=== PATIENT | male | born 1955 | race Two or more races ===

== ENCOUNTER 2017-02-14 19:14 | Inpatient (IN) | payer OTHER ==
[~2017-02-14] VITALS: Ht 172.7 cm; Wt 117.9 kg
[~2017-02-14 19:14] MED LIST: ALBUTEROL2.5 MG/3 M IH; IPRATROPIU0.2 MG/1 M IH; PREDNISONE20 MG PO; RISPERIDONE0.5 MG PO; SERTRALINE HCL50 MG PO
[2017-02-14] MEDS ORDERED: CIPRO100 MG (19:22)
[2017-02-14] MEDS ORDERED: PANADOL EXTRA500 MG (19:23)
[2017-02-14] MEDS ORDERED: PNEU16DI2 (19:23)
[2017-02-14] MEDS ORDERED: DICY10CA (19:23)
[2017-02-20] MEDS ORDERED: COLACE100 MG PO (09:56)
[2017-02-20] MEDS ORDERED: PROTONIX40 MG PO (09:56)
[2017-02-20] MEDS ORDERED: DUI500 PO (09:56)
== END 2017-02-20 13:22 | disposition home health service (06) | DRG 389 ==
LOC: ER 19:14 → MEDI 02-16 14:04 → SEC-K 02-16 14:04 → MEDI 02-17 01:12
PROC: 3E0336Z Introduction of Nutritional Substance into Peripheral Vein, Percutaneous Approach (ICD-10-PCS; principal; 2017-02-17)
PROC: 3E0F7GC Introduction of Other Therapeutic Substance into Respiratory Tract, Via Natural or Artificial Opening (ICD-10-PCS; 2017-02-17)
DX: K56.0 Paralytic ileus (principal); E27.49 Other adrenocortical insufficiency; E66.8 Other obesity; I10 Essential (primary) hypertension; G47.33 Obstructive sleep apnea (adult) (pediatric); K56.41 Fecal impaction; M10.09 Idiopathic gout, multiple sites; N30.80 Other cystitis without hematuria; E11.51 Type 2 diabetes mellitus with diabetic peripheral angiopathy without gangrene; E11.65 Type 2 diabetes mellitus with hyperglycemia; B96.1 Klebsiella pneumoniae [K. pneumoniae] as the cause of diseases classified elsewhere; J44.9 Chronic obstructive pulmonary disease, unspecified

== ENCOUNTER 2017-08-10 16:00 | Inpatient (IN) | payer OTHER ==
[~2017-08-10] VITALS: Ht 243.8 cm; Wt 110.2 kg
[~2017-08-10 16:00] MED LIST changes: +CIPRO100 MG; +COLACE100 MG PO; +DICY10CA; +DUI500 PO; +PANADOL EXTRA500 MG; +PNEU16DI2; +PROTONIX40 MG PO
[2017-08-10] MEDS ORDERED: ZYLOPRIM100 M1 (16:34)
[2017-08-10] MEDS ORDERED: METFORMIN HCL500 MG (16:34)
== END 2017-08-22 13:34 | disposition home health service (06) | DRG 693 ==
LOC: ER 16:00 → SURH 19:58 → SEC-K 19:58 → SURH 08-11 00:31
PROVIDERS: Urology
PROC: BW25ZZZ Computerized Tomography (CT Scan) of Chest, Abdomen and Pelvis (ICD-10-PCS; 2017-08-10)
PROC: 0T768DZ Dilation of Right Ureter with Intraluminal Device, Via Natural or Artificial Opening Endoscopic (ICD-10-PCS; principal; 2017-08-10 21:00)
PROC: BW25YZZ Computerized Tomography (CT Scan) of Chest, Abdomen and Pelvis using Other Contrast (ICD-10-PCS; 2017-08-11)
PROC: 8E0ZXY6 Isolation (ICD-10-PCS; 2017-08-18)
DX: N20.2 Calculus of kidney with calculus of ureter (principal); A41.59 Other Gram-negative sepsis; N30.00 Acute cystitis without hematuria; R39.89 Other symptoms and signs involving the genitourinary system; B96.1 Klebsiella pneumoniae [K. pneumoniae] as the cause of diseases classified elsewhere; E11.9 Type 2 diabetes mellitus without complications; Z16.24 Resistance to multiple antibiotics

== ENCOUNTER 2017-09-01 10:12 | Outpatient (CLI) | payer OTHER ==
[~2017-09-01 10:12] MED LIST changes: +METFORMIN HCL500 MG; +ZYLOPRIM100 M1
== END 2017-09-01 10:20 | disposition home or self-care (01) ==
LOC: TOM 10:12
DX: N20.1 Calculus of ureter (principal)

== ENCOUNTER → 2017-09-09 12:00 | Outpatient (CLI) | payer OTHER | END | disposition home or self-care (01) | LOC: LAB 12:00 | DX: N20.1 Calculus of ureter (principal) ==

== ENCOUNTER 2017-10-28 10:37 | Outpatient (CLI) | payer OTHER | END 2017-10-28 10:44 | disposition home or self-care (01) | LOC: RAD 501 10:37 | DX: N20.0 Calculus of kidney (principal) ==

== ENCOUNTER 2017-10-28 14:31 | Outpatient (CLI) | payer OTHER | END 2017-10-28 14:40 | disposition home or self-care (01) | LOC: TOM 14:31 | DX: N20.1 Calculus of ureter (principal) ==

== ENCOUNTER 2017-10-28 15:20 | Outpatient (CLI) | payer OTHER | END 2017-10-28 15:43 | disposition home or self-care (01) | LOC: LAB 15:20 | DX: N20.0 Calculus of kidney (principal) ==

== ENCOUNTER 2017-11-12 13:28 | Outpatient (CLI) | payer OTHER | END 2017-11-12 13:36 | disposition home or self-care (01) | LOC: RAD 501 13:28 | DX: N20.0 Calculus of kidney (principal); E11.9 Type 2 diabetes mellitus without complications ==

== ENCOUNTER 2017-11-12 14:34 | Outpatient (CLI) | payer OTHER | END 2017-11-12 14:40 | disposition home or self-care (01) | LOC: EKG 14:34 | DX: I11.9 Hypertensive heart disease without heart failure (principal) ==

== ENCOUNTER 2017-11-17 09:57 | Inpatient (IN) | payer OTHER ==
[~2017-11-17] VITALS: Ht 172.7 cm; Wt 108.9 kg
== END 2017-11-21 09:49 | disposition home or self-care (01) | DRG 661 ==
LOC: O/R 11-19 05:15 → CIR.AMB 11-19 09:56 → SURG 11-19 10:25 → EDSTATUS 11-19 10:25 → SURG 11-19 10:30 → SURH 11-19 13:16
PROVIDERS: Urology
PROC: 0TC08ZZ Extirpation of Matter from Right Kidney, Via Natural or Artificial Opening Endoscopic (ICD-10-PCS; 2017-11-19)
PROC: BT1DZZZ Fluoroscopy of Right Kidney, Ureter and Bladder (ICD-10-PCS; 2017-11-19)
PROC: 0TP98DZ Removal of Intraluminal Device from Ureter, Via Natural or Artificial Opening Endoscopic (ICD-10-PCS; 2017-11-19)
PROC: 0T768DZ Dilation of Right Ureter with Intraluminal Device, Via Natural or Artificial Opening Endoscopic (ICD-10-PCS; 2017-11-19)
PROC: 0TC04ZZ Extirpation of Matter from Right Kidney, Percutaneous Endoscopic Approach (ICD-10-PCS; principal; 2017-11-19 10:30)
PROC: BT11YZZ Fluoroscopy of Right Kidney using Other Contrast (ICD-10-PCS; 2017-11-21)
DX: N20.0 Calculus of kidney (principal); M10.9 Gout, unspecified; E11.9 Type 2 diabetes mellitus without complications

== ENCOUNTER 2018-10-15 10:08 | Inpatient (IN) | payer OTHER ==
[~2018-10-15] VITALS: Ht 172.7 cm; Wt 113.4 kg
== END 2018-10-23 17:00 | disposition home or self-care (01) | DRG 331 ==
LOC: SURH 10-20 05:30 → O/R 10-20 05:30 → SURH 10-20 10:06 → SURG 10-20 12:07 → SURH 10-20 14:01
PROVIDERS: ADMIT Colon & Rectal Surgery
PROC: 07TB4ZZ Resection of Mesenteric Lymphatic, Percutaneous Endoscopic Approach (ICD-10-PCS; 2018-10-20)
PROC: 0DBN4ZZ Excision of Sigmoid Colon, Percutaneous Endoscopic Approach (ICD-10-PCS; 2018-10-20)
PROC: 0DJD8ZZ Inspection of Lower Intestinal Tract, Via Natural or Artificial Opening Endoscopic (ICD-10-PCS; 2018-10-20)
PROC: 0DTN4ZZ Resection of Sigmoid Colon, Percutaneous Endoscopic Approach (ICD-10-PCS; principal; 2018-10-20 18:00)
DX: C19 Malignant neoplasm of rectosigmoid junction (principal); R59.0 Localized enlarged lymph nodes; D12.7 Benign neoplasm of rectosigmoid junction

== ENCOUNTER 2018-10-19 11:40 | Day surgery (SDC) | payer OTHER | END 2018-10-19 15:30 | disposition home or self-care (01) | LOC: AMB-ENDOS 11:40 | DX: C19 Malignant neoplasm of rectosigmoid junction (principal); K64.0 First degree hemorrhoids ==

== ENCOUNTER 2020-10-05 08:00 | Outpatient (CLI) | payer OTHER | END 2020-10-05 08:30 | disposition home or self-care (01) | LOC: PPH VACUNA 08:00 | DX: Z23 Encounter for immunization (principal) ==